=== PATIENT | male | born 1960 | race Hispanic/Latino ===

== ENCOUNTER → 2024-01-15 | Outpatient (CLI) | payer MEDICARE | END | disposition home or self-care (01) | LOC: RAH 14:50 | PROVIDERS: ATTEND Family Medicine | DX: N50.3 Cyst of epididymis (principal); N43.3 Hydrocele, unspecified; N13.30 Unspecified hydronephrosis; N50.811 Right testicular pain | CPT/HCPCS: 76870 ==

== ENCOUNTER → 2024-01-16 | Outpatient (CLI) | payer MEDICARE | END | disposition home or self-care (01) | LOC: RAH 09:05 → EDUNIT# 09:30 | PROVIDERS: ATTEND Family Medicine | DX: N32.89 Other specified disorders of bladder (principal); R16.1 Splenomegaly, not elsewhere classified; R33.9 Retention of urine, unspecified | CPT/HCPCS: 76700; 76770 ==